=== PATIENT | female | born 1950 | race Caucasian/White ===

== ENCOUNTER 2018-06-18 16:11 | Inpatient (IN) | payer MEDICAID, OTHER ==
[~2018-06-18 16:11] MED LIST: PHENYLephrine (100 MCG/ML) 10ML SYG IV; PHENYLephrine (100 MCG/ML) 5ML SYG IV
[2018-06-18 17:01] LABS: ADD MAN DIFF? NO
[2018-06-18 17:04] LABS: WHITE BLOOD COUNT 21.3 10^3/ul (4.8-10.8)
[2018-06-18 17:04] LABS: ABNORMAL IP MESSAGE 1; BASOPHIL # 0.1 10^3/ul (0.0-0.1); BASOPHILS % 0.3 % (0.0-2.0); HEMATOCRIT 34.1 % (37.0-47.0); HEMOGLOBIN 10.4 g/dl (12.0-16.0); LYMPHOCYTES # 1.5 10^3/ul (0.8-2.9); LYMPHOCYTES % 7.1 % (15.0-51.0); MEAN CORPUSCULAR HEMOGLOBIN 28.3 pg (29.0-33.0); MEAN CORPUSCULAR HGB CONC 30.5 g/dl (32.0-37.0); MEAN CORPUSCULAR VOLUME 92.9 fl (82.0-101.0); MEAN PLATELET VOLUME 10.8 fl (7.4-10.4); MONOCYTE # 1.9 10^3/ul (0.3-0.9); NEUTROPHILS % 79.7 % (39.0-77.0); PLATELET COUNT 527 10^3/UL (140-415); RED BLOOD COUNT 3.67 10^6/ul (4.20-5.40); RED CELL DISTRIBUTION WIDTH 16.8 % (11.5-14.5)
[2018-06-18 17:08] LABS: POSITIVE DIFF @See below
[2018-06-18 17:12] LABS: ADD UMIC YES; UR ASCORBIC ACID NEGATIVE (NEGATIVE); UR BILIRUBIN (Dip) NEGATIVE (NEGATIVE); UR BLOOD (Dip) 1+ mg/dL (NEGATIVE); UR BUDDING YEAST MANY /HPF (NONE SEEN); UR CLARITY SLIGHTLY CLOUDY (CLEAR); UR COLOR YELLOW (YELLOW); UR GLUCOSE (Dip) NEGATIVE (NEGATIVE); UR KETONES (Dip) NEGATIVE (NEGATIVE); UR LEUKOCYTE ESTERASE (Dip) TRACE Leu/ul (NEGATIVE); UR MUCUS FEW /HPF (NONE SEEN); UR NITRITE (Dip) NEGATIVE (NEGATIVE); UR RBC 33 /HPF (0-5); UR SPECIFIC GRAVITY (Dip) 1.014 (1.003-1.030); UR TOTAL PROTEIN (Dip) NEGATIVE (NEGATIVE); UR UROBILINOGEN (Dip) NEGATIVE (NEGATIVE); UR WBC 23 /HPF (0-5)
[2018-06-18] MEDS: CEFEPIME 1GM/50 ML (PMX) 50 ML IVPB (17:14)
[2018-06-18] MEDS: SODIUM CHLORIDE 0.9% 1L BAG IV* (17:15)
[2018-06-18 17:18] LABS: INR 2.34; PROTIME 26.3 Sec (11.9-14.9); PT RATIO 2.1
[2018-06-18 17:19] LABS: LACTIC ACID 1.6 mmol/L (0.5-2.0)
[2018-06-18 17:19] LABS: PARTIAL THROMBOPLASTIN TIME 47.8 Sec (25.0-35.0)
[2018-06-18 17:23] LABS: ALANINE AMINOTRANSFERASE 22 IU/L (13-69); ALBUMIN 3.3 g/dl (3.3-4.9); ALKALINE PHOSPHATASE 322 IU/L (42-121); ANION GAP 17 (8-16); ASPARTATE AMINO TRANSFERASE 39 IU/L (15-46); BILIRUBIN,INDIRECT 0.2 mg/dl (0-1.1); BILIRUBIN,TOTAL 0.2 mg/dl (0.2-1.3); BLOOD UREA NITROGEN 44 mg/dl (7-20); CARBON DIOXIDE 18 mmol/L (21-31); CHLORIDE 103 mmol/L (97-110); GLUCOSE 118 mg/dl (70-220); LIPASE 469 U/L (23-300); SODIUM 133 mmol/L (135-144); TOTAL PROTEIN 6.6 g/dl (6.1-8.1)
[2018-06-18 17:26] LABS: CREATININE 2.17 mg/dl (0.44-1.00); POTASSIUM 5.4 mmol/L (3.5-5.1)
[2018-06-18 17:27] LABS: CALCIUM 10.3 mg/dl (8.4-10.2)
[2018-06-18 17:32] LABS: TROPONIN-I 0.067 ng/ml (0.000-0.120)
[2018-06-18 17:53] LABS: C-REACTIVE PROTEIN 37.5 mg/dl (0.0-0.9)
[2018-06-18] MEDS: PHENYLephrine (100 MCG/ML) 5ML SYG IV (18:34)
[2018-06-18] MEDS ORDERED: VANCOMYCIN IV PER PHARMACY XX (19:00)
[2018-06-18] MEDS: HYDROmorphONE 2 MG/ML SYG IV (19:35)
[2018-06-18] MEDS: SOD CHLORIDE 0.9% 1,000 ML IV ×2 (19:36→20:30)
[2018-06-18] MEDS: VANCOMYCIN 1 GM in 250 ML IVPB (20:19)
[2018-06-18] MEDS ORDERED: ACETAMINOPHEN 650 MG SUPP PR (21:00)
[2018-06-18] MEDS: HYDROCORTISONE 100 MG INJ IV (21:48)
[2018-06-18] MEDS: LEVETIRACETAM 500 MG (PMX) 100 ML IVPB (22:28)
[2018-06-18] MEDS: MEROPENEM 1 GM/50ML(PMX) 50 ML IVPB (22:56)
[2018-06-19] MEDS: SOD CHLORIDE 0.9% 1,000 ML IV ×2 (04:08→12:48)
[2018-06-19] MEDS ORDERED: morphine 2 MG INJ (06:55)
[2018-06-19] MEDS: HYDROCORTISONE 100 MG INJ IV ×4 (07:01→18:48)
[2018-06-19] MEDS: PANTOPRAZOLE 40 MG INJ IV (07:01)
[2018-06-19] MEDS: morphine 2 MG INJ IV ×2 (07:22→22:27)
[2018-06-19] MEDS: MEROPENEM 1 GM/50ML(PMX) 50 ML IVPB ×2 (10:29→21:16)
[2018-06-19] MEDS: LEVETIRACETAM 500 MG (PMX) 100 ML IVPB ×2 (10:29→21:16)
[2018-06-19 14:05] LABS: WHITE BLOOD COUNT 21.2 10^3/ul (4.8-10.8)
[2018-06-19 14:05] LABS: ABNORMAL IP MESSAGE 1; HEMATOCRIT 31.4 % (37.0-47.0); HEMOGLOBIN 9.6 g/dl (12.0-16.0); MEAN CORPUSCULAR HEMOGLOBIN 28.2 pg (29.0-33.0); MEAN CORPUSCULAR HGB CONC 30.6 g/dl (32.0-37.0); MEAN CORPUSCULAR VOLUME 92.1 fl (82.0-101.0); MEAN PLATELET VOLUME 10.2 fl (7.4-10.4); PLATELET COUNT 534 10^3/UL (140-415); RED BLOOD COUNT 3.41 10^6/ul (4.20-5.40)
[2018-06-19 14:09] LABS: ADD MAN DIFF? YES; POSITIVE DIFF @See below
[2018-06-19] MEDS: FLUCONAZOLE 100 MG TAB PO (14:16)
[2018-06-19 14:26] LABS: ALANINE AMINOTRANSFERASE 22 IU/L (13-69); ALBUMIN 2.7 g/dl (3.3-4.9); ALKALINE PHOSPHATASE 232 IU/L (42-121); ANION GAP 13 (8-16); ASPARTATE AMINO TRANSFERASE 36 IU/L (15-46); BILIRUBIN,INDIRECT 0.1 mg/dl (0-1.1); BILIRUBIN,TOTAL 0.1 mg/dl (0.2-1.3); BLOOD UREA NITROGEN 25 mg/dl (7-20); CALCIUM 9.7 mg/dl (8.4-10.2); CARBON DIOXIDE 15 mmol/L (21-31); CHLORIDE 117 mmol/L (97-110); CREATININE 0.87 mg/dl (0.44-1.00); GLUCOSE 157 mg/dl (70-220); POTASSIUM 3.3 mmol/L (3.5-5.1); SODIUM 142 mmol/L (135-144); TOTAL PROTEIN 5.7 g/dl (6.1-8.1)
[2018-06-19 14:34] LABS: BAND NEUTROPHILS #M 3.3 10^3/ul (0.0-0.6); BAND NEUTROPHILS % (M) 16 % (0-4); BURR CELLS 1+ (0-0); LYMPHOCYTES #M 1.6 10^3/ul (0.8-2.9); LYMPHOCYTES % (M) 8 % (15-51); METAMYELOCYTES #M 0.2 10^3/ul (0.0-0.0); METAMYELOCYTES %M 1 % (0-0); MICROCYTOSIS 1+ (0-0); MONOCYTES % (M) 5 % (0-11); PLATELET ESTIMATE INCREASED; SEG NEUT #M 15.5 10^3/ul (1.6-7.5); SEGMENTED NEUTROPHILS (M) % 70 % (39-77); SMUDGE%M 2 % (0-0)
[2018-06-19] MEDS: NS + KCL 20 MEQ 1,000 ML IV (21:16)
[2018-06-20] MEDS: HYDROCORTISONE 100 MG INJ IV ×5 (01:00→23:55)
[2018-06-20] MEDS: PANTOPRAZOLE 40 MG INJ IV (05:40)
[2018-06-20 05:47] LABS: ABNORMAL IP MESSAGE 1; HEMATOCRIT 29.8 % (37.0-47.0); HEMOGLOBIN 9.2 g/dl (12.0-16.0); MEAN CORPUSCULAR HEMOGLOBIN 27.7 pg (29.0-33.0); MEAN CORPUSCULAR HGB CONC 30.9 g/dl (32.0-37.0); MEAN CORPUSCULAR VOLUME 89.8 fl (82.0-101.0); MEAN PLATELET VOLUME 10.8 fl (7.4-10.4); NUCLEATED RED BLOOD CELLS% 0.2 /100WBC (0.0-0.0); PLATELET COUNT 569 10^3/UL (140-415); RED BLOOD COUNT 3.32 10^6/ul (4.20-5.40); RED CELL DISTRIBUTION WIDTH 17.3 % (11.5-14.5)
[2018-06-20 05:47] LABS: WHITE BLOOD COUNT 19.3 10^3/ul (4.8-10.8)
[2018-06-20 05:53] LABS: ADD MAN DIFF? YES; POSITIVE DIFF @See below
[2018-06-20 06:25] LABS: ANION GAP 12 (8-16); BLOOD UREA NITROGEN 21 mg/dl (7-20); CALCIUM 10.2 mg/dl (8.4-10.2); CARBON DIOXIDE 16 mmol/L (21-31); CHLORIDE 118 mmol/L (97-110); CREATININE 0.65 mg/dl (0.44-1.00); GLUCOSE 145 mg/dl (70-220); POTASSIUM 3.7 mmol/L (3.5-5.1); SODIUM 142 mmol/L (135-144)
[2018-06-20 07:25] LABS: BURR CELLS 1+ (0-0); EOSINOPHILS % (M) 1 % (0-7); LYMPHOCYTES #M 0.3 10^3/ul (0.8-2.9); LYMPHOCYTES % (M) 2 % (15-51); MONOCYTE #M 1.1 10^3/ul (0.3-0.9); MONOCYTES % (M) 6 % (0-11); PLATELET ESTIMATE INCREASED; POLYCHROMASIA 1+ (0-0); SEGMENTED NEUTROPHILS (M) % 91 % (39-77); SMUDGE%M 12 % (0-0); SPHEROCYTES 1+ (0-0)
[2018-06-20] MEDS: VANCOMYCIN 600 MG in SOD CHLORIDE 0.9% 150 ML IVPB (07:41)
[2018-06-20] MEDS ORDERED: VANCOMYCIN 500MG/NS (PMX) 100 ML IVPB (08:00)
[2018-06-20] MEDS: NS + KCL 20 MEQ 1,000 ML IV ×3 (09:00→20:38)
[2018-06-20] MEDS: FLUCONAZOLE 100 MG TAB PO (09:25)
[2018-06-20] MEDS: LEVETIRACETAM 500 MG (PMX) 100 ML IVPB ×2 (09:50→20:41)
[2018-06-20] MEDS: MEROPENEM 1 GM/50ML(PMX) 50 ML IVPB ×3 (10:16→23:48)
[2018-06-20] MEDS ORDERED: PENDING SANTYL ORDER FOR WOUND CARE XX (12:00)
[2018-06-20] MEDS: VANCOMYCIN 750 MG in SOD CHLORIDE 0.9% 150 ML IVPB (21:07)
[2018-06-20] MEDS: COLLAGENASE 5 GM (UD JAR) TOP (23:02)
[2018-06-20] MEDS: morphine 2 MG INJ IV (23:49)
[2018-06-21] MEDS: FUROSEMIDE 40 MG INJ IV (01:56)
[2018-06-21] MEDS: ALBUTEROL/IPRATROPIUM (NEB) 3 ML AMP HHN ×4 (02:22→20:10)
[2018-06-21] MEDS: MEROPENEM 1 GM/50ML(PMX) 50 ML IVPB ×2 (05:31→13:15)
[2018-06-21] MEDS: HYDROCORTISONE 100 MG INJ IV ×3 (05:31→18:03)
[2018-06-21] MEDS: PANTOPRAZOLE 40 MG INJ IV (05:31)
[2018-06-21] MEDS: morphine 2 MG INJ IV ×4 (05:41→22:12)
[2018-06-21 05:42] LABS: ABNORMAL IP MESSAGE 1; HEMATOCRIT 29.2 % (37.0-47.0); HEMOGLOBIN 9.2 g/dl (12.0-16.0); MEAN CORPUSCULAR HGB CONC 31.5 g/dl (32.0-37.0); MEAN CORPUSCULAR VOLUME 88.8 fl (82.0-101.0); MEAN PLATELET VOLUME 10.7 fl (7.4-10.4); NUCLEATED RED BLOOD CELLS% 0.1 /100WBC (0.0-0.0); PLATELET COUNT 551 10^3/UL (140-415); RED BLOOD COUNT 3.29 10^6/ul (4.20-5.40); RED CELL DISTRIBUTION WIDTH 17.4 % (11.5-14.5)
[2018-06-21 05:42] LABS: WHITE BLOOD COUNT 15.2 10^3/ul (4.8-10.8)
[2018-06-21 06:23] LABS: ADD MAN DIFF? YES; POSITIVE DIFF @See below
[2018-06-21 07:00] LABS: ANION GAP 11 (8-16); BLOOD UREA NITROGEN 21 mg/dl (7-20); CALCIUM 11.1 mg/dl (8.4-10.2); CARBON DIOXIDE 16 mmol/L (21-31); CHLORIDE 119 mmol/L (97-110); CREATININE 0.48 mg/dl (0.44-1.00); GLUCOSE 152 mg/dl (70-220); POTASSIUM 3.2 mmol/L (3.5-5.1); SODIUM 143 mmol/L (135-144)
[2018-06-21] MEDS: LEVETIRACETAM 500 MG (PMX) 100 ML IVPB ×2 (08:08→21:51)
[2018-06-21] MEDS: COLLAGENASE 5 GM (UD JAR) TOP (08:09)
[2018-06-21] MEDS: FLUCONAZOLE 100 MG TAB PO (08:09)
[2018-06-21 08:13] LABS: ANISOCYTOSIS 1+ (0-0); BAND NEUTROPHILS % (M) 7 % (0-4); ERYTHROBLAST% (NRBC) (M) 1 % (0-0); LYMPHOCYTES #M 0.9 10^3/ul (0.8-2.9); LYMPHOCYTES % (M) 6 % (15-51); METAMYELOCYTES #M 0.3 10^3/ul (0.0-0.0); METAMYELOCYTES %M 2 % (0-0); MONOCYTES % (M) 7 % (0-11); MYELOCYTES #M 0.3 10^3/ul (0.0-0.0); MYELOCYTES % (M) 2 % (0-0); PLATELET ESTIMATE INCREASED; PROMYELOCYTES #M 0.1 10^3/ul (0-0); PROMYELOCYTES % (M) 1 % (0-0); SEG NEUT #M 11.6 10^3/ul (1.6-7.5); SEGMENTED NEUTROPHILS (M) % 75 % (39-77); SMUDGE%M 51 % (0-0)
[2018-06-21] MEDS: VANCOMYCIN 750 MG in SOD CHLORIDE 0.9% 150 ML IVPB (09:59)
[2018-06-21] MEDS: SOD CHLORIDE 0.9% 100 ML (16:53)
[2018-06-21] MEDS: POTASSIUM CHLORIDE 20 MEQ POWDER FOR ORAL SOLN PO (16:53)
[2018-06-21] MEDS: IOHEXOL 300MG/ML 150 ML BTL (16:53)
[2018-06-21] MEDS: ENOXAPARIN 30 MG/0.3 ML SYG SC (16:59)
[2018-06-21] MEDS: PIPER-TAZO 2.25 GM (PMX) 50 ML IVPB (21:51)
[2018-06-21] MEDS ORDERED: VANCOMYCIN 750 MG in SOD CHLORIDE 0.9% 150 ML IVPB (22:00)
[2018-06-21] MEDS: HYDROCODONE/APAP (5/325) TAB PO (23:30)
[2018-06-22] MEDS: PIPER-TAZO 2.25 GM (PMX) 50 ML IVPB ×4 (00:49→19:08)
[2018-06-22] MEDS: HYDROCORTISONE 100 MG INJ IV ×5 (00:49→21:56)
[2018-06-22] MEDS: ALBUTEROL/IPRATROPIUM (NEB) 3 ML AMP HHN ×5 (01:25→20:03)
[2018-06-22] MEDS: morphine 2 MG INJ IV ×2 (05:50→22:08)
[2018-06-22] MEDS: PANTOPRAZOLE 40 MG INJ IV (05:50)
[2018-06-22 06:18] LABS: WHITE BLOOD COUNT 14.6 10^3/ul (4.8-10.8)
[2018-06-22 06:18] LABS: ABNORMAL IP MESSAGE 1; HEMATOCRIT 27.7 % (37.0-47.0); HEMOGLOBIN 8.7 g/dl (12.0-16.0); MEAN CORPUSCULAR HEMOGLOBIN 27.4 pg (29.0-33.0); MEAN CORPUSCULAR HGB CONC 31.4 g/dl (32.0-37.0); MEAN CORPUSCULAR VOLUME 87.1 fl (82.0-101.0); MEAN PLATELET VOLUME 10.8 fl (7.4-10.4); NUCLEATED RED BLOOD CELLS% 0.1 /100WBC (0.0-0.0); PLATELET COUNT 535 10^3/UL (140-415); RED BLOOD COUNT 3.18 10^6/ul (4.20-5.40); RED CELL DISTRIBUTION WIDTH 17.3 % (11.5-14.5)
[2018-06-22 06:27] LABS: ADD MAN DIFF? YES; POSITIVE DIFF @See below
[2018-06-22 06:45] LABS: ANION GAP 11 (8-16); BLOOD UREA NITROGEN 19 mg/dl (7-20); CALCIUM 10.9 mg/dl (8.4-10.2); CARBON DIOXIDE 19 mmol/L (21-31); CHLORIDE 117 mmol/L (97-110); CREATININE 0.46 mg/dl (0.44-1.00); GLUCOSE 110 mg/dl (70-220); POTASSIUM 3.5 mmol/L (3.5-5.1); SODIUM 143 mmol/L (135-144)
[2018-06-22 07:09] LABS: BAND NEUTROPHILS % (M) 7 % (0-4); LYMPHOCYTES #M 1.1 10^3/ul (0.8-2.9); LYMPHOCYTES % (M) 8 % (15-51); MONOCYTE #M 1.4 10^3/ul (0.3-0.9); MONOCYTES % (M) 10 % (0-11); MYELOCYTES #M 0.1 10^3/ul (0.0-0.0); MYELOCYTES % (M) 1 % (0-0); PLATELET ESTIMATE NORMAL; POLYCHROMASIA 1+ (0-0); REACTIVE LYMPHOCYTES #M 0.1 10^3/ul (0.0-0.0); REACTIVE LYMPHOCYTES% (M) 1 % (0-0); SEG NEUT #M 10.8 10^3/ul (1.6-7.5); SEGMENTED NEUTROPHILS (M) % 73 % (39-77); SMUDGE%M 6 % (0-0); SPHEROCYTES 1+ (0-0)
[2018-06-22] MEDS: LEVETIRACETAM 500 MG (PMX) 100 ML IVPB ×2 (09:25→21:58)
[2018-06-22] MEDS: HYDROCODONE/APAP (5/325) TAB PO ×2 (09:26→21:56)
[2018-06-22] MEDS: COLLAGENASE 5 GM (UD JAR) TOP (09:26)
[2018-06-22] MEDS: FLUCONAZOLE 100 MG TAB PO (09:26)
[2018-06-22] MEDS: ONDANSETRON 4 MG INJ IV (09:57)
[2018-06-22] MEDS: ENOXAPARIN 30 MG/0.3 ML SYG SC (10:02)
[2018-06-22 14:26] LABS: PROCALCITONIN 2.01 ng/mL (<0.10)
[2018-06-23] MEDS: PIPER-TAZO 2.25 GM (PMX) 50 ML IVPB ×5 (00:25→23:22)
[2018-06-23] MEDS ORDERED: LORAZEPAM 2 MG INJ IV (01:00)
[2018-06-23] MEDS: ALBUTEROL/IPRATROPIUM (NEB) 3 ML AMP HHN ×5 (02:06→20:23)
[2018-06-23] MEDS: PANTOPRAZOLE 40 MG INJ IV (05:41)
[2018-06-23] MEDS: HYDROCORTISONE 100 MG INJ IV ×3 (05:42→21:03)
[2018-06-23] MEDS: FLUCONAZOLE 100 MG TAB PO (08:56)
[2018-06-23] MEDS: HYDROCODONE/APAP (5/325) TAB PO ×2 (08:56→21:03)
[2018-06-23] MEDS: LEVETIRACETAM 500 MG (PMX) 100 ML IVPB ×2 (08:56→21:02)
[2018-06-23] MEDS: COLLAGENASE 5 GM (UD JAR) TOP (08:57)
[2018-06-23] MEDS: ENOXAPARIN 30 MG/0.3 ML SYG SC (09:29)
[2018-06-23] MEDS: morphine 2 MG INJ IV ×2 (15:11→23:22)
[2018-06-24] MEDS: ALBUTEROL/IPRATROPIUM (NEB) 3 ML AMP HHN ×4 (01:06→21:42)
[2018-06-24] MEDS: PANTOPRAZOLE 40 MG INJ IV (05:14)
[2018-06-24] MEDS: HYDROCORTISONE 100 MG INJ IV ×3 (05:14→20:37)
[2018-06-24] MEDS: PIPER-TAZO 2.25 GM (PMX) 50 ML IVPB ×4 (05:14→17:23)
[2018-06-24 06:17] LABS: ABNORMAL IP MESSAGE 1; HEMATOCRIT 27.7 % (37.0-47.0); HEMOGLOBIN 8.6 g/dl (12.0-16.0); MEAN CORPUSCULAR HEMOGLOBIN 27.8 pg (29.0-33.0); MEAN CORPUSCULAR VOLUME 89.6 fl (82.0-101.0); MEAN PLATELET VOLUME 11.3 fl (7.4-10.4); PLATELET COUNT 539 10^3/UL (140-415); RED BLOOD COUNT 3.09 10^6/ul (4.20-5.40); RED CELL DISTRIBUTION WIDTH 17.8 % (11.5-14.5)
[2018-06-24 06:17] LABS: WHITE BLOOD COUNT 19.5 10^3/ul (4.8-10.8)
[2018-06-24 06:27] LABS: ADD MAN DIFF? YES; POSITIVE DIFF @See below
[2018-06-24 06:45] LABS: ALBUMIN 2.8 g/dl (3.3-4.9); ALBUMIN/GLOBULIN RATIO 0.96; ALKALINE PHOSPHATASE 183 IU/L (42-121); ANION GAP 11 (8-16); ASPARTATE AMINO TRANSFERASE 25 IU/L (15-46); BILIRUBIN,INDIRECT 0.3 mg/dl (0-1.1); BILIRUBIN,TOTAL 0.3 mg/dl (0.2-1.3); BLOOD UREA NITROGEN 17 mg/dl (7-20); CALCIUM 10.7 mg/dl (8.4-10.2); CARBON DIOXIDE 22 mmol/L (21-31); CHLORIDE 117 mmol/L (97-110); CREATININE 0.48 mg/dl (0.44-1.00); GLUCOSE 128 mg/dl (70-220); POTASSIUM 3.2 mmol/L (3.5-5.1); SODIUM 147 mmol/L (135-144); TOTAL PROTEIN 5.7 g/dl (6.1-8.1)
[2018-06-24] MEDS ORDERED: NALOXONE 2 MG SYG (07:00)
[2018-06-24 07:18] LABS: ANISOCYTOSIS 1+ (0-0); BAND NEUTROPHILS #M 0.3 10^3/ul (0.0-0.6); BAND NEUTROPHILS % (M) 2 % (0-4); ERYTHROBLAST% (NRBC) (M) 1 % (0-0); LYMPHOCYTES #M 0.5 10^3/ul (0.8-2.9); LYMPHOCYTES % (M) 3 % (15-51); METAMYELOCYTES #M 0.3 10^3/ul (0.0-0.0); METAMYELOCYTES %M 2 % (0-0); MONOCYTE #M 0.9 10^3/ul (0.3-0.9); MONOCYTES % (M) 5 % (0-11); MYELOCYTES #M 0.1 10^3/ul (0.0-0.0); MYELOCYTES % (M) 1 % (0-0); PLATELET ESTIMATE INCREASED; SEGMENTED NEUTROPHILS (M) % 87 % (39-77); SMUDGE%M 9 % (0-0); TARGET CELLS 1+ (0-0)
[2018-06-24] MEDS: ONDANSETRON 4 MG INJ IV (07:58)
[2018-06-24 08:01] LABS: ALANINE AMINOTRANSFERASE 29 IU/L (13-69)
[2018-06-24] MEDS: POTASSIUM CHLORIDE (SR) 20 MEQ TAB PO (09:22)
[2018-06-24] MEDS: COLLAGENASE 5 GM (UD JAR) TOP (09:22)
[2018-06-24] MEDS: FLUCONAZOLE 100 MG TAB PO (09:23)
[2018-06-24] MEDS: HYDROCODONE/APAP (5/325) TAB PO ×2 (09:23→20:37)
[2018-06-24] MEDS: LEVETIRACETAM 500 MG (PMX) 100 ML IVPB ×2 (09:30→20:36)
[2018-06-24] MEDS: ENOXAPARIN 30 MG/0.3 ML SYG SC (09:39)
[2018-06-24] MEDS: morphine 2 MG INJ IV ×2 (10:49→16:40)
[2018-06-24] MEDS: LORAZEPAM 2 MG INJ IV (21:43)
[2018-06-24] MEDS ORDERED: VANCOMYCIN IV PER PHARMACY XX (22:00)
[2018-06-24 23:04] LABS: LACTIC ACID 1.2 mmol/L (0.5-2.0)
[2018-06-24 23:11] LABS: B-TYPE NATRIURETIC PEPTIDE 5180 PG/ML (0-125)
[2018-06-24 23:16] LABS: ADD UMIC YES; UR ASCORBIC ACID NEGATIVE (NEGATIVE); UR BACTERIA FEW /HPF (NONE SEEN); UR BILIRUBIN (Dip) NEGATIVE (NEGATIVE); UR BLOOD (Dip) 1+ mg/dL (NEGATIVE); UR BUDDING YEAST MANY /HPF (NONE SEEN); UR CLARITY CLOUDY (CLEAR); UR COLOR YELLOW (YELLOW); UR GLUCOSE (Dip) 1+ mg/dL (NEGATIVE); UR KETONES (Dip) NEGATIVE (NEGATIVE); UR LEUKOCYTE ESTERASE (Dip) 1+ Leu/ul (NEGATIVE); UR MUCUS FEW /HPF (NONE SEEN); UR NITRITE (Dip) NEGATIVE (NEGATIVE); UR NONSQUAMOUS EPITHELIAL CELL 1 /HPF (NONE SEEN); UR RBC > 182 /HPF (0-5); UR SPECIFIC GRAVITY (Dip) 1.013 (1.003-1.030); UR SQUAMOUS EPITHELIAL CELL FEW /HPF (FEW); UR TOTAL PROTEIN (Dip) NEGATIVE (NEGATIVE); UR UROBILINOGEN (Dip) NEGATIVE (NEGATIVE); UR WBC 59 /HPF (0-5)
[2018-06-25 00:24] LABS: AADO2 Arterial 483.9 mmHg (7.0-24.0); Allen Test ACCEPTAB; Arterial Base Excess -3.3 mmol/L (-3.0-3); Arterial COHb 0.3 % (0.0-3.0); Arterial Fraction of Oxyhgb 98.4 % (93.0-99.0); Arterial MetHb 0.3 % (0.0-1.5); Arterial Total Hemglobin 10.1 g/dl (12.0-18.0); Arterial pCO2 34.8 mmhg (35-45); MODE MASK - NRB; Site Right Radial
[2018-06-25] MEDS: VANCOMYCIN 1 GM 250 ML IVPB (00:35)
[2018-06-25 00:56] LABS: ABNORMAL IP MESSAGE 1; HEMATOCRIT 28.9 % (37.0-47.0); HEMOGLOBIN 9.1 g/dl (12.0-16.0); MEAN CORPUSCULAR HEMOGLOBIN 28.2 pg (29.0-33.0); MEAN CORPUSCULAR HGB CONC 31.5 g/dl (32.0-37.0); MEAN CORPUSCULAR VOLUME 89.5 fl (82.0-101.0); MEAN PLATELET VOLUME 10.6 fl (7.4-10.4); NUCLEATED RED BLOOD CELLS% 0.1 /100WBC (0.0-0.0); PLATELET COUNT 550 10^3/UL (140-415); RED BLOOD COUNT 3.23 10^6/ul (4.20-5.40); RED CELL DISTRIBUTION WIDTH 17.7 % (11.5-14.5)
[2018-06-25 00:56] LABS: WHITE BLOOD COUNT 30.1 10^3/ul (4.8-10.8)
[2018-06-25 01:03] LABS: POSITIVE DIFF @See below
[2018-06-25 01:04] LABS: ADD MAN DIFF? YES
[2018-06-25 01:18] LABS: LACTIC ACID 1.5 mmol/L (0.5-2.0)
[2018-06-25 01:20] LABS: ALBUMIN 2.7 g/dl (3.3-4.9); ALBUMIN/GLOBULIN RATIO 0.93; ALKALINE PHOSPHATASE 176 IU/L (42-121); ANION GAP 10 (8-16); ASPARTATE AMINO TRANSFERASE 26 IU/L (15-46); BILIRUBIN,INDIRECT 0.2 mg/dl (0-1.1); BILIRUBIN,TOTAL 0.2 mg/dl (0.2-1.3); BLOOD UREA NITROGEN 13 mg/dl (7-20); CALCIUM 9.9 mg/dl (8.4-10.2); CARBON DIOXIDE 22 mmol/L (21-31); CHLORIDE 115 mmol/L (97-110); GLUCOSE 123 mg/dl (70-220); POTASSIUM 3.4 mmol/L (3.5-5.1); SODIUM 144 mmol/L (135-144); TOTAL PROTEIN 5.6 g/dl (6.1-8.1)
[2018-06-25 01:35] LABS: ALANINE AMINOTRANSFERASE 26 IU/L (13-69)
[2018-06-25] MEDS: MEROPENEM 1 GM/50ML(PMX) 50 ML IVPB ×4 (02:30→21:40)
[2018-06-25] MEDS: ALBUTEROL/IPRATROPIUM (NEB) 3 ML AMP HHN ×4 (02:43→19:14)
[2018-06-25 03:38] LABS: BAND NEUTROPHILS #M 2.1 10^3/ul (0.0-0.6); BAND NEUTROPHILS % (M) 7 % (0-4); LYMPHOCYTES #M 0.6 10^3/ul (0.8-2.9); LYMPHOCYTES % (M) 2 % (15-51); METAMYELOCYTES #M 0.3 10^3/ul (0.0-0.0); METAMYELOCYTES %M 1 % (0-0); MONOCYTE #M 0.9 10^3/ul (0.3-0.9); MONOCYTES % (M) 3 % (0-11); MYELOCYTES #M 0.6 10^3/ul (0.0-0.0); MYELOCYTES % (M) 2 % (0-0); PLATELET ESTIMATE INCREASED; SEG NEUT #M 26.2 10^3/ul (1.6-7.5); SEGMENTED NEUTROPHILS (M) % 85 % (39-77); SMUDGE%M 3 % (0-0)
[2018-06-25] MEDS: PANTOPRAZOLE 40 MG INJ IV (05:41)
[2018-06-25] MEDS: HYDROCORTISONE 100 MG INJ IV ×3 (05:41→21:40)
[2018-06-25 05:56] LABS: WHITE BLOOD COUNT 28.9 10^3/ul (4.8-10.8)
[2018-06-25 05:56] LABS: ABNORMAL IP MESSAGE 1; HEMATOCRIT 28.9 % (37.0-47.0); HEMOGLOBIN 8.9 g/dl (12.0-16.0); MEAN CORPUSCULAR HEMOGLOBIN 27.8 pg (29.0-33.0); MEAN CORPUSCULAR HGB CONC 30.8 g/dl (32.0-37.0); MEAN CORPUSCULAR VOLUME 90.3 fl (82.0-101.0); MEAN PLATELET VOLUME 10.8 fl (7.4-10.4); NUCLEATED RED BLOOD CELLS% 0.1 /100WBC (0.0-0.0); PLATELET COUNT 519 10^3/UL (140-415); RED CELL DISTRIBUTION WIDTH 17.9 % (11.5-14.5)
[2018-06-25 06:06] LABS: ADD MAN DIFF? YES; POSITIVE DIFF @See below
[2018-06-25] MEDS ORDERED: VITAMIN A & D 5 GM OINT PACKET TOP (06:15)
[2018-06-25 06:32] LABS: ANION GAP 8 (8-16); BLOOD UREA NITROGEN 13 mg/dl (7-20); CALCIUM 10.1 mg/dl (8.4-10.2); CARBON DIOXIDE 24 mmol/L (21-31); CHLORIDE 117 mmol/L (97-110); CREATININE 0.36 mg/dl (0.44-1.00); GLUCOSE 120 mg/dl (70-220); POTASSIUM 3.2 mmol/L (3.5-5.1); SODIUM 146 mmol/L (135-144)
[2018-06-25] MEDS: LEVETIRACETAM 500 MG (PMX) 100 ML IVPB ×2 (08:31→20:57)
[2018-06-25] MEDS: DEXAMETHASONE 4 MG/ML 1 ML INJ IV ×2 (08:42→20:57)
[2018-06-25 08:43] LABS: ANISOCYTOSIS 1+ (0-0); BAND NEUTROPHILS #M 0.2 10^3/ul (0.0-0.6); BAND NEUTROPHILS % (M) 1 % (0-4); HYPOCHROMASIA 1+ (0-0); LYMPHOCYTES #M 1.1 10^3/ul (0.8-2.9); LYMPHOCYTES % (M) 4 % (15-51); MICROCYTOSIS 1+ (0-0); MONOCYTE #M 1.4 10^3/ul (0.3-0.9); MONOCYTES % (M) 5 % (0-11); MYELOCYTES #M 0.2 10^3/ul (0.0-0.0); MYELOCYTES % (M) 1 % (0-0); PLATELET ESTIMATE INCREASED; POLYCHROMASIA 1+ (0-0); SEG NEUT #M 25.8 10^3/ul (1.6-7.5); SEGMENTED NEUTROPHILS (M) % 89 % (39-77); SMUDGE%M 2 % (0-0); SPHEROCYTES 1+ (0-0)
[2018-06-25] MEDS: ENOXAPARIN 30 MG/0.3 ML SYG SC (08:53)
[2018-06-25] MEDS: HYDROCODONE/APAP (5/325) TAB PO ×2 (09:00→20:58)
[2018-06-25 09:19] LABS: AADO2 Arterial 337.6 mmHg (7.0-24.0); Allen Test ACCEPTAB; Arterial Base Excess -1.9 mmol/L (-3.0-3); Arterial Blood Gas Oxygen Sat 90.9 mmHG (95.0-98.0); Arterial COHb 0.3 % (0.0-3.0); Arterial Fraction of Oxyhgb 90.5 % (93.0-99.0); Arterial HCO3 22.2 mmol/L (22.0-26.0); Arterial MetHb 0.1 % (0.0-1.5); Arterial Total Hemglobin 10.5 g/dl (12.0-18.0); Arterial pCO2 35.3 mmhg (35-45); MODE MASK - SIMPLE; Site Right Radial
[2018-06-25] MEDS: COLLAGENASE 5 GM (UD JAR) TOP (09:43)
[2018-06-25] MEDS ORDERED: morphine 2 MG INJ IV (14:00)
[2018-06-25] MEDS: VANCOMYCIN 750 MG in SOD CHLORIDE 0.9% 150 ML IVPB (14:02)
[2018-06-25 14:16] LABS: AADO2 Arterial 211.7 mmHg (7.0-24.0); Allen Test ACCEPTAB; Arterial Base Excess -1.6 mmol/L (-3.0-3); Arterial COHb 0.3 % (0.0-3.0); Arterial Fraction of Oxyhgb 97.6 % (93.0-99.0); Arterial HCO3 22.1 mmol/L (22.0-26.0); Arterial MetHb 0.1 % (0.0-1.5); Arterial Total Hemglobin 10.7 g/dl (12.0-18.0); Arterial pCO2 33.3 mmhg (35-45); Blood Gas PS 7; MODE MASK - BIPAP; Site Right Radial
[2018-06-25] MEDS: D5W-0.45 NACL + KCL 20 MEQ 1,000 ML IV (14:53)
[2018-06-25] MEDS: morphine 2 MG INJ IV ×2 (15:20→19:29)
[2018-06-25] MEDS: POTASSIUM CHLORIDE 50 ML IVPB (16:12)
[2018-06-25] MEDS: LORAZEPAM 2 MG INJ IV (21:12)
[2018-06-26] MEDS: VANCOMYCIN 750 MG in SOD CHLORIDE 0.9% 150 ML IVPB ×2 (00:59→13:39)
[2018-06-26] MEDS: ALBUTEROL/IPRATROPIUM (NEB) 3 ML AMP HHN ×4 (01:31→20:34)
[2018-06-26] MEDS: D5W-0.45 NACL + KCL 20 MEQ 1,000 ML IV ×2 (03:49→10:03)
[2018-06-26] MEDS: LORAZEPAM 2 MG INJ IV (03:49)
[2018-06-26] MEDS: HYDROCORTISONE 100 MG INJ IV (05:42)
[2018-06-26] MEDS: PANTOPRAZOLE 40 MG INJ IV (05:42)
[2018-06-26 05:43] LABS: ADD MAN DIFF? NO
[2018-06-26] MEDS: MEROPENEM 1 GM/50ML(PMX) 50 ML IVPB ×3 (05:43→21:51)
[2018-06-26 05:55] LABS: WHITE BLOOD COUNT 25.1 10^3/ul (4.8-10.8)
[2018-06-26 05:55] LABS: ABNORMAL IP MESSAGE 1; BASOPHIL # 0.1 10^3/ul (0.0-0.1); BASOPHILS % 0.3 % (0.0-2.0); HEMOGLOBIN 9.4 g/dl (12.0-16.0); LYMPHOCYTES # 0.6 10^3/ul (0.8-2.9); LYMPHOCYTES % 2.5 % (15.0-51.0); MEAN CORPUSCULAR HEMOGLOBIN 28.2 pg (29.0-33.0); MEAN CORPUSCULAR HGB CONC 31.3 g/dl (32.0-37.0); MEAN CORPUSCULAR VOLUME 90.1 fl (82.0-101.0); MEAN PLATELET VOLUME 10.8 fl (7.4-10.4); MONOCYTE # 0.7 10^3/ul (0.3-0.9); MONOCYTES % 2.9 % (0.0-11.0); NEUTROPHIL # 22.2 10^3/ul (1.6-7.5); NEUTROPHILS % 88.3 % (39.0-77.0); PLATELET COUNT 531 10^3/UL (140-415); RED BLOOD COUNT 3.33 10^6/ul (4.20-5.40); RED CELL DISTRIBUTION WIDTH 17.9 % (11.5-14.5)
[2018-06-26 06:04] LABS: POSITIVE DIFF @See below
[2018-06-26 06:45] LABS: ANION GAP 7 (8-16); BLOOD UREA NITROGEN 12 mg/dl (7-20); CALCIUM 10.1 mg/dl (8.4-10.2); CARBON DIOXIDE 26 mmol/L (21-31); CHLORIDE 115 mmol/L (97-110); CREATININE 0.46 mg/dl (0.44-1.00); GLUCOSE 149 mg/dl (70-220); MAGNESIUM 1.8 mg/dl (1.7-2.5); PHOSPHORUS 2.2 mg/dl (2.5-4.9); POTASSIUM 3.3 mmol/L (3.5-5.1); SODIUM 145 mmol/L (135-144)
[2018-06-26 07:23] LABS: AADO2 Arterial 96.8 mmHg (7.0-24.0); Allen Test ACCEPTAB; Arterial Base Excess -0.7 mmol/L (-3.0-3); Arterial Blood Gas Oxygen Sat 95.6 mmHG (95.0-98.0); Arterial COHb 0.3 % (0.0-3.0); Arterial Fraction of Oxyhgb 95.1 % (93.0-99.0); Arterial MetHb 0.2 % (0.0-1.5); Arterial Total Hemglobin 11.1 g/dl (12.0-18.0); Arterial pCO2 34.6 mmhg (35-45); Blood Gas PS 7; MODE MASK - BIPAP; Site Right Radial
[2018-06-26] MEDS: COLLAGENASE 5 GM (UD JAR) TOP (10:02)
[2018-06-26] MEDS: LEVETIRACETAM 500 MG (PMX) 100 ML IVPB ×2 (10:03→20:47)
[2018-06-26] MEDS: DEXAMETHASONE 4 MG/ML 1 ML INJ IV ×2 (10:03→20:47)
[2018-06-26] MEDS: ENOXAPARIN 30 MG/0.3 ML SYG SC (10:04)
[2018-06-26] MEDS: HYDROCODONE/APAP (5/325) TAB PO ×2 (10:05→20:54)
[2018-06-26] MEDS: MAGNESIUM SULFATE 1 GM/D5W 100 ML IVPB (10:43)
[2018-06-26] MEDS: morphine 2 MG INJ IV ×3 (10:43→23:06)
[2018-06-26 12:30] LABS: VANCOMYCIN,TROUGH 15.6 ug/ml (10.0-20.0)
[2018-06-26] MEDS: POTASSIUM PHOSPHATE 20 MM in SOD CHLORIDE 0.9% 250 ML IVPB (16:39)
[2018-06-27] MEDS: VANCOMYCIN 750 MG in SOD CHLORIDE 0.9% 150 ML IVPB ×2 (00:28→13:54)
[2018-06-27] MEDS: ALBUTEROL/IPRATROPIUM (NEB) 3 ML AMP HHN ×5 (01:02→19:43)
[2018-06-27 05:00] LABS: ABNORMAL IP MESSAGE 1; HEMATOCRIT 30.1 % (37.0-47.0); HEMOGLOBIN 9.6 g/dl (12.0-16.0); MEAN CORPUSCULAR HEMOGLOBIN 28.6 pg (29.0-33.0); MEAN CORPUSCULAR HGB CONC 31.9 g/dl (32.0-37.0); MEAN CORPUSCULAR VOLUME 89.6 fl (82.0-101.0); NUCLEATED RED BLOOD CELLS% 0.1 /100WBC (0.0-0.0); PLATELET COUNT 542 10^3/UL (140-415); RED BLOOD COUNT 3.36 10^6/ul (4.20-5.40); RED CELL DISTRIBUTION WIDTH 18.4 % (11.5-14.5)
[2018-06-27 05:00] LABS: WHITE BLOOD COUNT 27.5 10^3/ul (4.8-10.8)
[2018-06-27 05:05] LABS: POSITIVE DIFF @See below
[2018-06-27 05:06] LABS: ADD MAN DIFF? YES
[2018-06-27 05:31] LABS: ANION GAP 10 (8-16); BLOOD UREA NITROGEN 16 mg/dl (7-20); CALCIUM 10.2 mg/dl (8.4-10.2); CARBON DIOXIDE 26 mmol/L (21-31); CHLORIDE 116 mmol/L (97-110); CREATININE 0.41 mg/dl (0.44-1.00); GLUCOSE 144 mg/dl (70-220); MAGNESIUM 2.4 mg/dl (1.7-2.5); POTASSIUM 3.7 mmol/L (3.5-5.1); SODIUM 148 mmol/L (135-144)
[2018-06-27] MEDS: PANTOPRAZOLE 40 MG INJ IV (05:33)
[2018-06-27] MEDS: MEROPENEM 1 GM/50ML(PMX) 50 ML IVPB ×3 (05:33→21:39)
[2018-06-27] MEDS: morphine 2 MG INJ IV ×3 (05:44→21:43)
[2018-06-27] MEDS: D5W-0.45 NACL + KCL 20 MEQ 1,000 ML IV ×2 (08:54→10:00)
[2018-06-27] MEDS: HYDROCODONE/APAP (5/325) TAB PO ×2 (09:00→21:00)
[2018-06-27] MEDS: COLLAGENASE 5 GM (UD JAR) TOP (09:57)
[2018-06-27] MEDS: LEVETIRACETAM 500 MG (PMX) 100 ML IVPB ×2 (09:57→22:42)
[2018-06-27] MEDS: DEXAMETHASONE 4 MG/ML 1 ML INJ IV ×2 (09:57→21:39)
[2018-06-27] MEDS: ENOXAPARIN 30 MG/0.3 ML SYG SC (09:59)
[2018-06-27 11:18] LABS: ANISOCYTOSIS 2+ (0-0); BAND NEUTROPHILS #M 0.8 10^3/ul (0.0-0.6); BAND NEUTROPHILS % (M) 3 % (0-4); BURR CELLS 1+ (0-0); MICROCYTOSIS 1+ (0-0); MONOCYTE #M 1.3 10^3/ul (0.3-0.9); MONOCYTES % (M) 5 % (0-11); MYELOCYTES #M 0.5 10^3/ul (0.0-0.0); MYELOCYTES % (M) 2 % (0-0); PLATELET ESTIMATE INCREASED; POIKILOCYTOSIS 1+ (0-0); POLYCHROMASIA 1+ (0-0); SEGMENTED NEUTROPHILS (M) % 90 % (39-77); SMUDGE%M 6 % (0-0)
[2018-06-27 18:22] LABS: CREATINE KINASE < 20 IU/L (23-200)
[2018-06-27 18:28] LABS: CK-MB 0.99 ng/ml (0.0-2.4); TROPONIN-I < 0.012 ng/ml (0.000-0.120)
[2018-06-28] MEDS: VANCOMYCIN 750 MG in SOD CHLORIDE 0.9% 150 ML IVPB (01:15)
[2018-06-28 01:29] LABS: CK-MB 1.06 ng/ml (0.0-2.4); CREATINE KINASE < 20 IU/L (23-200); TROPONIN-I < 0.012 ng/ml (0.000-0.120)
[2018-06-28] MEDS: ALBUTEROL/IPRATROPIUM (NEB) 3 ML AMP HHN ×4 (01:29→20:39)
[2018-06-28] MEDS: morphine 2 MG INJ IV ×2 (01:48→10:20)
[2018-06-28] MEDS: LORAZEPAM 2 MG INJ IV (04:02)
[2018-06-28 05:02] LABS: ADD MAN DIFF? NO
[2018-06-28 05:04] LABS: ABNORMAL IP MESSAGE 1; BASOPHILS % 0.2 % (0.0-2.0); HEMATOCRIT 30.8 % (37.0-47.0); HEMOGLOBIN 9.7 g/dl (12.0-16.0); LYMPHOCYTES # 0.5 10^3/ul (0.8-2.9); LYMPHOCYTES % 2.3 % (15.0-51.0); MEAN CORPUSCULAR HEMOGLOBIN 28.4 pg (29.0-33.0); MEAN CORPUSCULAR HGB CONC 31.5 g/dl (32.0-37.0); MEAN CORPUSCULAR VOLUME 90.1 fl (82.0-101.0); MEAN PLATELET VOLUME 11.1 fl (7.4-10.4); MONOCYTE # 0.7 10^3/ul (0.3-0.9); MONOCYTES % 3.1 % (0.0-11.0); NEUTROPHIL # 21.4 10^3/ul (1.6-7.5); NEUTROPHILS % 90.4 % (39.0-77.0); PLATELET COUNT 499 10^3/UL (140-415); RED BLOOD COUNT 3.42 10^6/ul (4.20-5.40); RED CELL DISTRIBUTION WIDTH 18.2 % (11.5-14.5)
[2018-06-28 05:04] LABS: WHITE BLOOD COUNT 23.7 10^3/ul (4.8-10.8)
[2018-06-28 05:26] LABS: POSITIVE DIFF @See below
[2018-06-28 05:33] LABS: ANION GAP 9 (8-16); BLOOD UREA NITROGEN 12 mg/dl (7-20); CALCIUM 10.1 mg/dl (8.4-10.2); CARBON DIOXIDE 27 mmol/L (21-31); CHLORIDE 112 mmol/L (97-110); CREATININE 0.36 mg/dl (0.44-1.00); GLUCOSE 127 mg/dl (70-220); POTASSIUM 3.9 mmol/L (3.5-5.1); SODIUM 144 mmol/L (135-144)
[2018-06-28 05:44] LABS: CK-MB 1.23 ng/ml (0.0-2.4)
[2018-06-28] MEDS: MEROPENEM 1 GM/50ML(PMX) 50 ML IVPB ×3 (05:47→21:52)
[2018-06-28] MEDS: PANTOPRAZOLE 40 MG INJ IV (05:47)
[2018-06-28 06:15] LABS: CREATINE KINASE < 20 IU/L (23-200)
[2018-06-28] MEDS: HYDROCODONE/APAP (5/325) TAB PO ×2 (09:00→21:51)
[2018-06-28] MEDS: LEVETIRACETAM 500 MG (PMX) 100 ML IVPB ×2 (09:10→21:51)
[2018-06-28] MEDS: DEXAMETHASONE 4 MG/ML 1 ML INJ IV ×2 (09:10→21:51)
[2018-06-28] MEDS: ENOXAPARIN 30 MG/0.3 ML SYG SC (09:11)
[2018-06-28] MEDS: COLLAGENASE 5 GM (UD JAR) TOP (09:11)
[2018-06-28 12:56] LABS: VANCOMYCIN,TROUGH 22.7 ug/ml (10.0-20.0)
[2018-06-28] MEDS: D5W-0.45 NACL + KCL 20 MEQ 1,000 ML IV (13:30)
[2018-06-28] MEDS: VANCOMYCIN 500MG/NS (PMX) 100 ML IVPB (21:52)
[2018-06-29] MEDS: morphine 2 MG INJ IV ×3 (01:56→17:13)
[2018-06-29] MEDS: D5W-0.45 NACL + KCL 20 MEQ 1,000 ML IV ×2 (01:59→18:06)
[2018-06-29] MEDS: ALBUTEROL/IPRATROPIUM (NEB) 3 ML AMP HHN ×4 (02:52→20:51)
[2018-06-29 05:04] LABS: ABNORMAL IP MESSAGE 1; BASOPHILS % 0.1 % (0.0-2.0); HEMATOCRIT 31.4 % (37.0-47.0); HEMOGLOBIN 9.8 g/dl (12.0-16.0); LYMPHOCYTES # 0.6 10^3/ul (0.8-2.9); LYMPHOCYTES % 2.2 % (15.0-51.0); MEAN CORPUSCULAR HEMOGLOBIN 27.8 pg (29.0-33.0); MEAN CORPUSCULAR HGB CONC 31.2 g/dl (32.0-37.0); MEAN CORPUSCULAR VOLUME 89.2 fl (82.0-101.0); MEAN PLATELET VOLUME 11.2 fl (7.4-10.4); MONOCYTE # 0.9 10^3/ul (0.3-0.9); MONOCYTES % 3.4 % (0.0-11.0); NEUTROPHIL # 23.8 10^3/ul (1.6-7.5); NEUTROPHILS % 91.7 % (39.0-77.0); PLATELET COUNT 426 10^3/UL (140-415); RED BLOOD COUNT 3.52 10^6/ul (4.20-5.40); RED CELL DISTRIBUTION WIDTH 17.9 % (11.5-14.5)
[2018-06-29 05:05] LABS: ADD MAN DIFF? NO
[2018-06-29 05:06] LABS: POSITIVE DIFF @See below
[2018-06-29 06:01] LABS: ALANINE AMINOTRANSFERASE 20 IU/L (13-69); ALBUMIN 2.6 g/dl (3.3-4.9); ALKALINE PHOSPHATASE 143 IU/L (42-121); ANION GAP 9 (8-16); ASPARTATE AMINO TRANSFERASE 22 IU/L (15-46); BILIRUBIN,INDIRECT 0.5 mg/dl (0-1.1); BILIRUBIN,TOTAL 0.5 mg/dl (0.2-1.3); BLOOD UREA NITROGEN 10 mg/dl (7-20); CALCIUM 9.5 mg/dl (8.4-10.2); CARBON DIOXIDE 27 mmol/L (21-31); CHLORIDE 108 mmol/L (97-110); CREATININE 0.29 mg/dl (0.44-1.00); GLUCOSE 137 mg/dl (70-220); SODIUM 140 mmol/L (135-144); TOTAL PROTEIN 5.2 g/dl (6.1-8.1)
[2018-06-29] MEDS: MEROPENEM 1 GM/50ML(PMX) 50 ML IVPB ×3 (06:53→22:33)
[2018-06-29] MEDS: PANTOPRAZOLE 40 MG INJ IV (06:53)
[2018-06-29] MEDS: HYDROCODONE/APAP (5/325) TAB PO ×2 (09:00→21:00)
[2018-06-29] MEDS: DEXAMETHASONE 4 MG/ML 1 ML INJ IV ×2 (09:09→20:52)
[2018-06-29] MEDS: LEVETIRACETAM 500 MG (PMX) 100 ML IVPB ×2 (09:09→20:52)
[2018-06-29] MEDS: COLLAGENASE 5 GM (UD JAR) TOP (09:10)
[2018-06-29] MEDS: ENOXAPARIN 30 MG/0.3 ML SYG SC (09:10)
[2018-06-29] MEDS: VANCOMYCIN 500MG/NS (PMX) 100 ML IVPB ×2 (09:53→21:17)
[2018-06-30] MEDS: morphine 2 MG INJ IV ×5 (02:19→23:34)
[2018-06-30] MEDS: ALBUTEROL/IPRATROPIUM (NEB) 3 ML AMP HHN ×4 (03:11→20:14)
[2018-06-30] MEDS: PANTOPRAZOLE 40 MG INJ IV (05:04)
[2018-06-30] MEDS: MEROPENEM 1 GM/50ML(PMX) 50 ML IVPB ×3 (05:04→23:02)
[2018-06-30 06:04] LABS: ADD MAN DIFF? NO
[2018-06-30 06:16] LABS: ABNORMAL IP MESSAGE 1; BASOPHIL # 0.1 10^3/ul (0.0-0.1); BASOPHILS % 0.2 % (0.0-2.0); HEMATOCRIT 30.3 % (37.0-47.0); HEMOGLOBIN 9.4 g/dl (12.0-16.0); LYMPHOCYTES # 0.6 10^3/ul (0.8-2.9); LYMPHOCYTES % 2.2 % (15.0-51.0); MEAN CORPUSCULAR HEMOGLOBIN 27.6 pg (29.0-33.0); MEAN CORPUSCULAR VOLUME 89.1 fl (82.0-101.0); MEAN PLATELET VOLUME 11.4 fl (7.4-10.4); MONOCYTE # 1.5 10^3/ul (0.3-0.9); MONOCYTES % 5.3 % (0.0-11.0); NEUTROPHIL # 25.4 10^3/ul (1.6-7.5); PLATELET COUNT 359 10^3/UL (140-415); RED CELL DISTRIBUTION WIDTH 17.6 % (11.5-14.5)
[2018-06-30 06:16] LABS: WHITE BLOOD COUNT 28.2 10^3/ul (4.8-10.8)
[2018-06-30 06:24] LABS: POSITIVE DIFF @See below
[2018-06-30 06:29] LABS: ANION GAP 9 (8-16); BLOOD UREA NITROGEN 10 mg/dl (7-20); CALCIUM 9.1 mg/dl (8.4-10.2); CARBON DIOXIDE 26 mmol/L (21-31); CHLORIDE 105 mmol/L (97-110); CREATININE 0.33 mg/dl (0.44-1.00); GLUCOSE 132 mg/dl (70-220); POTASSIUM 3.7 mmol/L (3.5-5.1); SODIUM 136 mmol/L (135-144)
[2018-06-30] MEDS: HYDROCODONE/APAP (5/325) TAB PO ×2 (09:00→20:57)
[2018-06-30] MEDS: DEXAMETHASONE 4 MG/ML 1 ML INJ IV ×2 (10:10→20:12)
[2018-06-30] MEDS: D5W-0.45 NACL + KCL 20 MEQ 1,000 ML IV ×2 (10:11→23:02)
[2018-06-30] MEDS: LEVETIRACETAM 500 MG (PMX) 100 ML IVPB ×2 (10:12→20:12)
[2018-06-30] MEDS: COLLAGENASE 5 GM (UD JAR) TOP (10:15)
[2018-06-30] MEDS: ENOXAPARIN 30 MG/0.3 ML SYG SC (10:22)
[2018-06-30] MEDS: VANCOMYCIN 500MG/NS (PMX) 100 ML IVPB ×2 (10:37→21:27)
[2018-06-30 20:12] LABS: VANCOMYCIN,TROUGH 13.6 ug/ml (10.0-20.0)
[2018-07-01] MEDS: ALBUTEROL/IPRATROPIUM (NEB) 3 ML AMP HHN ×4 (01:31→19:20)
[2018-07-01] MEDS: morphine 2 MG INJ IV ×5 (04:47→21:54)
[2018-07-01] MEDS: PANTOPRAZOLE 40 MG INJ IV (05:02)
[2018-07-01] MEDS: MEROPENEM 1 GM/50ML(PMX) 50 ML IVPB ×3 (05:02→21:53)
[2018-07-01 06:20] LABS: ABNORMAL IP MESSAGE 1; HEMATOCRIT 31.2 % (37.0-47.0); HEMOGLOBIN 9.7 g/dl (12.0-16.0); MEAN CORPUSCULAR HEMOGLOBIN 27.6 pg (29.0-33.0); MEAN CORPUSCULAR HGB CONC 31.1 g/dl (32.0-37.0); MEAN CORPUSCULAR VOLUME 88.6 fl (82.0-101.0); MEAN PLATELET VOLUME 12.8 fl (7.4-10.4); RED BLOOD COUNT 3.52 10^6/ul (4.20-5.40); RED CELL DISTRIBUTION WIDTH 17.5 % (11.5-14.5)
[2018-07-01 06:37] LABS: PLATELET COUNT 193 10^3/UL (140-415); POSITIVE DIFF @See below
[2018-07-01 06:40] LABS: ADD MAN DIFF? YES
[2018-07-01 06:53] LABS: ANION GAP 9 (8-16); BLOOD UREA NITROGEN 8 mg/dl (7-20); CALCIUM 9.2 mg/dl (8.4-10.2); CARBON DIOXIDE 25 mmol/L (21-31); CHLORIDE 106 mmol/L (97-110); GLUCOSE 107 mg/dl (70-220); POTASSIUM 4.3 mmol/L (3.5-5.1); SODIUM 136 mmol/L (135-144)
[2018-07-01] MEDS: LEVETIRACETAM 500 MG (PMX) 100 ML IVPB ×2 (08:31→21:18)
[2018-07-01] MEDS: VANCOMYCIN 500MG/NS (PMX) 100 ML IVPB ×2 (08:33→20:01)
[2018-07-01] MEDS: DEXAMETHASONE 4 MG/ML 1 ML INJ IV ×2 (08:35→20:02)
[2018-07-01] MEDS: HYDROCODONE/APAP (5/325) TAB PO ×2 (08:36→20:02)
[2018-07-01] MEDS: ENOXAPARIN 30 MG/0.3 ML SYG SC (08:40)
[2018-07-01] MEDS: COLLAGENASE 5 GM (UD JAR) TOP (09:15)
[2018-07-01 11:16] LABS: BAND NEUTROPHILS #M 0.2 10^3/ul (0.0-0.6); BAND NEUTROPHILS % (M) 1 % (0-4); BURR CELLS 1+ (0-0); LYMPHOCYTES % (M) 4 % (15-51); METAMYELOCYTES #M 0.2 10^3/ul (0.0-0.0); METAMYELOCYTES %M 1 % (0-0); MONOCYTES % (M) 4 % (0-11); MYELOCYTES #M 0.2 10^3/ul (0.0-0.0); MYELOCYTES % (M) 1 % (0-0); PLATELET ESTIMATE NORMAL; POLYCHROMASIA 1+ (0-0); SEG NEUT #M 23.2 10^3/ul (1.6-7.5); SEGMENTED NEUTROPHILS (M) % 89 % (39-77); SMUDGE%M 3 % (0-0); TARGET CELLS 1+ (0-0)
[2018-07-01] MEDS: D5W-0.45 NACL + KCL 20 MEQ 1,000 ML IV (13:46)
[2018-07-02] MEDS: morphine 2 MG INJ IV ×6 (02:09→23:15)
[2018-07-02] MEDS: ALBUTEROL/IPRATROPIUM (NEB) 3 ML AMP HHN ×4 (02:18→21:14)
[2018-07-02] MEDS: D5W-0.45 NACL + KCL 20 MEQ 1,000 ML IV ×2 (03:58→10:50)
[2018-07-02] MEDS: PANTOPRAZOLE 40 MG INJ IV (05:32)
[2018-07-02 06:13] LABS: ADD MAN DIFF? NO
[2018-07-02 06:27] LABS: WHITE BLOOD COUNT 22.9 10^3/ul (4.8-10.8)
[2018-07-02 06:27] LABS: ABNORMAL IP MESSAGE 1; BASOPHILS % 0.2 % (0.0-2.0); HEMATOCRIT 31.3 % (37.0-47.0); HEMOGLOBIN 9.7 g/dl (12.0-16.0); LYMPHOCYTES # 0.7 10^3/ul (0.8-2.9); MEAN CORPUSCULAR HEMOGLOBIN 27.8 pg (29.0-33.0); MEAN CORPUSCULAR VOLUME 89.7 fl (82.0-101.0); MEAN PLATELET VOLUME 12.1 fl (7.4-10.4); MONOCYTE # 1.4 10^3/ul (0.3-0.9); NEUTROPHIL # 20.3 10^3/ul (1.6-7.5); NEUTROPHILS % 88.8 % (39.0-77.0); PLATELET COUNT 307 10^3/UL (140-415); RED BLOOD COUNT 3.49 10^6/ul (4.20-5.40); RED CELL DISTRIBUTION WIDTH 17.6 % (11.5-14.5)
[2018-07-02 06:36] LABS: POSITIVE DIFF @See below
[2018-07-02 07:01] LABS: ANION GAP 8 (8-16); BLOOD UREA NITROGEN 6 mg/dl (7-20); CARBON DIOXIDE 29 mmol/L (21-31); CHLORIDE 105 mmol/L (97-110); CREATININE 0.23 mg/dl (0.44-1.00); GLUCOSE 106 mg/dl (70-220); POTASSIUM 3.9 mmol/L (3.5-5.1); SODIUM 138 mmol/L (135-144)
[2018-07-02] MEDS: HYDROCODONE/APAP (5/325) TAB PO ×2 (09:00→21:00)
[2018-07-02] MEDS: DEXAMETHASONE 4 MG/ML 1 ML INJ IV ×2 (09:06→22:13)
[2018-07-02] MEDS: FUROSEMIDE 20 MG INJ IV (09:06)
[2018-07-02] MEDS: LEVETIRACETAM 500 MG (PMX) 100 ML IVPB ×2 (09:08→22:14)
[2018-07-02] MEDS: ENOXAPARIN 30 MG/0.3 ML SYG SC (09:18)
[2018-07-02] MEDS: COLLAGENASE 5 GM (UD JAR) TOP (15:57)
[2018-07-03] MEDS: morphine 2 MG INJ IV ×5 (00:30→19:01)
[2018-07-03] MEDS: D5W-0.45 NACL + KCL 20 MEQ 1,000 ML IV ×2 (00:31→14:45)
[2018-07-03] MEDS: LORAZEPAM 2 MG INJ IV ×3 (01:50→21:15)
[2018-07-03] MEDS: ALBUTEROL/IPRATROPIUM (NEB) 3 ML AMP HHN ×4 (01:54→19:47)
[2018-07-03 05:25] LABS: ADD MAN DIFF? NO
[2018-07-03 05:34] LABS: ABNORMAL IP MESSAGE 1; BASOPHILS % 0.1 % (0.0-2.0); HEMATOCRIT 28.5 % (37.0-47.0); HEMOGLOBIN 9.1 g/dl (12.0-16.0); LYMPHOCYTES # 0.4 10^3/ul (0.8-2.9); LYMPHOCYTES % 1.8 % (15.0-51.0); MEAN CORPUSCULAR HEMOGLOBIN 27.8 pg (29.0-33.0); MEAN CORPUSCULAR HGB CONC 31.9 g/dl (32.0-37.0); MEAN CORPUSCULAR VOLUME 87.2 fl (82.0-101.0); MEAN PLATELET VOLUME 11.6 fl (7.4-10.4); MONOCYTE # 1.1 10^3/ul (0.3-0.9); MONOCYTES % 5.2 % (0.0-11.0); NEUTROPHIL # 18.9 10^3/ul (1.6-7.5); NEUTROPHILS % 91.4 % (39.0-77.0); PLATELET COUNT 314 10^3/UL (140-415); RED BLOOD COUNT 3.27 10^6/ul (4.20-5.40); RED CELL DISTRIBUTION WIDTH 17.6 % (11.5-14.5)
[2018-07-03 05:34] LABS: WHITE BLOOD COUNT 20.7 10^3/ul (4.8-10.8)
[2018-07-03 05:59] LABS: POSITIVE DIFF @See below
[2018-07-03] MEDS: PANTOPRAZOLE 40 MG INJ IV (06:18)
[2018-07-03 06:43] LABS: ANION GAP 9 (8-16); BLOOD UREA NITROGEN 6 mg/dl (7-20); CALCIUM 9.1 mg/dl (8.4-10.2); CARBON DIOXIDE 26 mmol/L (21-31); CHLORIDE 107 mmol/L (97-110); CREATININE 0.24 mg/dl (0.44-1.00); GLUCOSE 136 mg/dl (70-220); POTASSIUM 3.9 mmol/L (3.5-5.1); SODIUM 138 mmol/L (135-144)
[2018-07-03] MEDS: COLLAGENASE 5 GM (UD JAR) TOP (09:00)
[2018-07-03] MEDS: HYDROCODONE/APAP (5/325) TAB PO ×2 (09:00→21:00)
[2018-07-03] MEDS: LEVETIRACETAM 500 MG (PMX) 100 ML IVPB ×2 (09:11→22:25)
[2018-07-03] MEDS: DEXAMETHASONE 4 MG/ML 1 ML INJ IV ×2 (09:11→22:25)
[2018-07-03] MEDS: FUROSEMIDE 20 MG INJ IV (09:11)
[2018-07-03] MEDS: ENOXAPARIN 30 MG/0.3 ML SYG SC (09:13)
[2018-07-03] MEDS: SOD CHLORIDE 0.9% 500 ML IV ×2 (16:13→23:33)
[2018-07-04] MEDS: morphine 2 MG INJ IV (00:12)
[2018-07-04] MEDS: ALBUTEROL/IPRATROPIUM (NEB) 3 ML AMP HHN ×4 (00:35→19:50)
[2018-07-04] MEDS: PANTOPRAZOLE 40 MG INJ IV (05:14)
[2018-07-04] MEDS: LORAZEPAM 2 MG INJ IV ×2 (05:15→17:54)
[2018-07-04 05:37] LABS: ADD MAN DIFF? NO
[2018-07-04 05:44] LABS: WHITE BLOOD COUNT 18.4 10^3/ul (4.8-10.8)
[2018-07-04 05:44] LABS: ABNORMAL IP MESSAGE 1; BASOPHILS % 0.1 % (0.0-2.0); HEMATOCRIT 27.8 % (37.0-47.0); HEMOGLOBIN 8.6 g/dl (12.0-16.0); LYMPHOCYTES # 0.3 10^3/ul (0.8-2.9); LYMPHOCYTES % 1.6 % (15.0-51.0); MEAN CORPUSCULAR HEMOGLOBIN 28.3 pg (29.0-33.0); MEAN CORPUSCULAR HGB CONC 30.9 g/dl (32.0-37.0); MEAN CORPUSCULAR VOLUME 91.4 fl (82.0-101.0); MEAN PLATELET VOLUME 11.8 fl (7.4-10.4); MONOCYTE # 0.8 10^3/ul (0.3-0.9); MONOCYTES % 4.4 % (0.0-11.0); NEUTROPHILS % 92.6 % (39.0-77.0); PLATELET COUNT 275 10^3/UL (140-415); RED BLOOD COUNT 3.04 10^6/ul (4.20-5.40); RED CELL DISTRIBUTION WIDTH 17.5 % (11.5-14.5)
[2018-07-04 06:07] LABS: POSITIVE DIFF @See below
[2018-07-04 06:28] LABS: ANION GAP 6 (8-16); BLOOD UREA NITROGEN 6 mg/dl (7-20); CALCIUM 8.8 mg/dl (8.4-10.2); CARBON DIOXIDE 28 mmol/L (21-31); CHLORIDE 108 mmol/L (97-110); CREATININE 0.24 mg/dl (0.44-1.00); GLUCOSE 127 mg/dl (70-220); POTASSIUM 3.7 mmol/L (3.5-5.1); SODIUM 138 mmol/L (135-144)
[2018-07-04] MEDS: HYDROCODONE/APAP (5/325) TAB PO (08:33)
[2018-07-04] MEDS: COLLAGENASE 5 GM (UD JAR) TOP (08:41)
[2018-07-04] MEDS: D5W-0.45 NACL + KCL 20 MEQ 1,000 ML IV ×2 (08:44→12:30)
[2018-07-04] MEDS: DEXAMETHASONE 4 MG/ML 1 ML INJ IV (08:44)
[2018-07-04] MEDS: LEVETIRACETAM 500 MG (PMX) 100 ML IVPB ×2 (08:49→22:25)
[2018-07-04] MEDS: ENOXAPARIN 30 MG/0.3 ML SYG SC (09:18)
[2018-07-04] MEDS: FUROSEMIDE 20 MG INJ IV (10:44)
[2018-07-04] MEDS: SOD CHLORIDE 0.9% 200 ML IV (11:28)
[2018-07-04] MEDS ORDERED: ACETAMINOPHEN 650 MG SUPP PR (17:30)
[2018-07-04] MEDS ORDERED: ARTIFICIAL TEARS 15 ML OPH BOTH EYES (17:30)
[2018-07-04] MEDS ORDERED: BISACODYL 10 MG SUPP PR (17:30)
[2018-07-04] MEDS ORDERED: LORAZEPAM 2 MG INJ IV (17:30)
[2018-07-04] MEDS ORDERED: ONDANSETRON 4 MG INJ IV (17:30)
[2018-07-04] MEDS: morphine (DRIP) 100 MG/100 ML 100 ML IV (18:41)
[2018-07-04] MEDS: SCOPOLAMINE 1.5 MG PATCH TRANSDERM (18:42)
[2018-07-05] MEDS: ALBUTEROL/IPRATROPIUM (NEB) 3 ML AMP HHN ×4 (01:54→20:12)
[2018-07-05] MEDS: LEVETIRACETAM 500 MG (PMX) 100 ML IVPB ×2 (09:00→21:00)
[2018-07-05] MEDS: morphine (DRIP) 100 MG/100 ML 100 ML IV (09:55)
[2018-07-05] MEDS ORDERED: VITAMIN A & D 5 GM OINT PACKET TOP (13:35)
[2018-07-05] MEDS: LORAZEPAM 2 MG INJ IV ×2 (13:58→21:22)
[2018-07-05] MEDS: ATROPINE 1% 5 ML OPH SL (22:11)
[2018-07-05] MEDS: DIMETHICONE STICK TOP (22:11)
[2018-07-06] MEDS: ALBUTEROL/IPRATROPIUM (NEB) 3 ML AMP HHN (01:09)
== END 2018-07-06 05:40 | disposition expired | DRG 871 ==
LOC: ICU 17:28 → 6WM 06-30 01:28 → MS1 07-05 12:04 → E/R 16:11 → 6WM 06-20 20:11
PROC: 5A09557 Assistance with Respiratory Ventilation, Greater than 96 Consecutive Hours, Continuous Positive Airway Pressure (ICD-10-PCS; principal; 2018-06-25)
PROC: 4B02XSZ Measurement of Cardiac Pacemaker, External Approach (ICD-10-PCS; 2018-06-29)
DX: A41.9 Sepsis, unspecified organism (principal); R65.21 Severe sepsis with septic shock; K85.90 Acute pancreatitis without necrosis or infection, unspecified; J18.9 Pneumonia, unspecified organism; J96.01 Acute respiratory failure with hypoxia; L89.153 Pressure ulcer of sacral region, stage 3; G93.49 Other encephalopathy; C34.90 Malignant neoplasm of unspecified part of unspecified bronchus or lung; C79.31 Secondary malignant neoplasm of brain; N39.0 Urinary tract infection, site not specified; N17.9 Acute kidney failure, unspecified; E87.0 Hyperosmolality and hypernatremia; T82.128A Displacement of other cardiac electronic device, initial encounter; R64 Cachexia; Z68.1 Body mass index [BMI] 19.9 or less, adult; Z66 Do not resuscitate; D63.0 Anemia in neoplastic disease; D47.3 Essential (hemorrhagic) thrombocythemia; E78.5 Hyperlipidemia, unspecified; E86.0 Dehydration; E87.5 Hyperkalemia; E83.52 Hypercalcemia; F17.200 Nicotine dependence, unspecified, uncomplicated; G40.909 Epilepsy, unspecified, not intractable, without status epilepticus; I10 Essential (primary) hypertension; J44.9 Chronic obstructive pulmonary disease, unspecified; R13.10 Dysphagia, unspecified; R41.82 Altered mental status, unspecified; R62.7 Adult failure to thrive; Z51.5 Encounter for palliative care; Z86.73 Personal history of transient ischemic attack (TIA), and cerebral infarction without residual deficits; Z90.49 Acquired absence of other specified parts of digestive tract; Z95.0 Presence of cardiac pacemaker; Z79.01 Long term (current) use of anticoagulants
CPT/HCPCS: 36415; 36600; 70470; 71045; 74176; 78306; 80048; 80053; 80202; 81001; 82550; 82553; 82803; 82962; 83605; 83690; 83735; 83880; 84100; 84145; 84484; 85025; 85610; 85730; 86140; 86850; 86900; 86901; 87040; 87081; 87086; 87400; 87449; 92526; 92610; 93005; 93306; 93971; 94640; 94660; 94664; 96374; 99291-25; A9503